=== PATIENT | female | born 1975 | race Caucasian/White ===

== ENCOUNTER 2023-04-24 06:30 | Day surgery (SDC) | payer BC ==
[~2023-04-24 06:30] MED LIST: Lactated Ringers 1,000 ML IV SCH; Sodium Chloride 0.9% 10 ML Syringe FLUSH PRN; Sodium Chloride 0.9% 10 ML Syringe FLUSH SCH
[2023-04-24] MEDS ORDERED: Propofol 200 MG/20 ML SDV ONE (06:59)
[2023-04-24] MEDS ORDERED: ceFAZolin 2 GM Vial ONE (06:59)
[2023-04-24] MEDS ORDERED: fentaNYL 100 MCG/2 ML SDV ONE (07:00)
[2023-04-24] MEDS ORDERED: Midazolam 1 MG/ML 2 ML SDV ONE (07:00)
[2023-04-24] MEDS ORDERED: dexmedeTOMIDine HCl 200 MCG/2 ML SDV ONE (07:05)
[2023-04-24] MEDS ORDERED: Ropivacaine 0.5% 5 MG/ML 30 ML SDV ONE (07:05)
[2023-04-24] MEDS ORDERED: EPINEPHrine 1 MG/ML SDV ONE (07:05)
[2023-04-24] MEDS ORDERED: Sodium Chloride 0.9% 250 ML ONE (08:33)
[2023-04-24] MEDS ORDERED: Ondansetron 4 MG/2 ML SDV IVPUSH PRN (08:49)
[2023-04-24] MEDS ORDERED: fentaNYL 100 MCG/2 ML SDV IVPUSH PRN (08:49)
[2023-04-24] MEDS ORDERED: HYDROmorphone 0.5 MG/0.5 ML Syringe IVPUSH PRN (08:49)
[2023-04-24] MEDS ORDERED: ePHEDrine 50 MG/ML SDV ONE (08:50)
[2023-04-24] MEDS ORDERED: Phenylephrine 1% 10 MG/ML SDV ONE (08:54)
[2023-04-24] MEDS ORDERED: Lactated Ringers 1,000 ML IV ONE (09:00)
[2023-04-24] MEDS: Vancomycin 1 GM SDV ONE ×2 (09:01→09:34)
[2023-04-24] MEDS: Morphine 8 MG, EPINEPHrine 0.3 MG, Cefuroxime 750 MG, Ketorolac 30 MG, Sodium Chloride ... PRN ×10 (09:01→09:27)
[2023-04-24] MEDS: Tranexamic Acid 1,000 MG/10 ML Vial ONE ×2 (09:01→09:34)
[2023-04-24] MEDS ORDERED: Dexamethasone 4 MG/ML 5 ML MDV ONE (09:03)
[2023-04-24] MEDS ORDERED: Ondansetron 4 MG/2 ML SDV ONE (09:03)
[2023-04-24] MEDS ORDERED: Ketorolac 30 MG/ML SDV ONE (09:03)
[2023-04-24] MEDS ORDERED: oxyCODONE 5 MG Tab PO SCH ×2 (11:33→14:17)
== END 2023-04-24 14:30 | disposition home or self-care (01) ==
LOC: JD.SDS 06:30
PROVIDERS: ATTEND Orthopaedic Surgery
DX: M17.11 Unilateral primary osteoarthritis, right knee (principal); Z88.9 Allergy status to unspecified drugs, medicaments and biological substances
CPT/HCPCS: 0055T; 27599; 73560; 97110; 97116; 97161; A9270; C1713; C1776; J0171; J0690; J0697; J1100; J1885; J2250; J2270; J2371; J2405; J2704; J2795; J3010; J3370; J7030; J7050; J7120; J3490

== ENCOUNTER 2025-01-02 07:43 | Day surgery (SDC) | payer BC ==
[~2025-01-02 07:43] MED LIST changes: +Glycopyrrolate 0.2 MG/ML 2 ML SDV ONE; +Ketamine HCL/NACL, ISO-OSM 50 MG/5 ML Syringe ONE; -Lactated Ringers 1,000 ML IV SCH; +Midazolam 1 MG/ML 2 ML SDV ONE; +dexmedeTOMIDine HCl 200 MCG/2 ML SDV ONE; +fentaNYL 100 MCG/2 ML SDV ONE; +propofoL 500 MG/50 ML 50 ML ONE
[2025-01-02] MEDS ORDERED: Propofol 200 MG/20 ML SDV ONE (08:09)
[2025-01-02] MEDS: Lactated Ringers 1,000 ML IV SCH (08:15)
[2025-01-02] MEDS ORDERED: Ondansetron 4 MG/2 ML SDV IVPUSH PRN (08:16)
[2025-01-02] MEDS ORDERED: fentaNYL 100 MCG/2 ML SDV IVPUSH PRN (08:16)
[2025-01-02] MEDS ORDERED: VANCOmycin 1.25 GM/250 ML 1.25 GM in Premix Bag 1 BAG IV ONE (08:30)
[2025-01-02] MEDS: EPINEPHrine 1 MG/ML SDV ONE (09:35)
[2025-01-02] MEDS: Acetaminophen/HYDROcodone 325-5 MG Tab PO PRN (10:51)
== END 2025-01-02 11:50 | disposition home or self-care (01) ==
LOC: JD.SDS 07:43
PROVIDERS: ATTEND Orthopaedic Surgery
DX: S83.281A Other tear of lateral meniscus, current injury, right knee, initial encounter (principal); M94.261 Chondromalacia, right knee; Z88.8 Allergy status to other drugs, medicaments and biological substances
CPT/HCPCS: 29877; A9270; J0169; J0690; J1596; J2003; J2250; J2704; J3010; J3375; J7120; 01400; J1171; J3490